=== PATIENT | female | born 1995 | race Caucasian/White ===

== ENCOUNTER 2018-09-15 13:12 | Emergency (ER) | payer OTHER ==
[2018-09-15] MEDS ORDERED: EPINEPHrine 1 MG/ML INJ IM ONE (13:17)
[2018-09-15] MEDS ORDERED: FAMOTIDINE 20 MG TAB PO ONE (13:17)
[2018-09-15] MEDS ORDERED: methylPREDNISolone SOD SUCC 125 MG/2 ML VIAL IVP ONE (13:17)
--- NOTE | 2018-09-15 13:20 | EDPHY ---
H & P Time Seen by Provider: 09/15/18 13:17 HPI/ROS: CHIEF COMPLAINT: Allergic reaction HISTORY OF PRESENT ILLNESS: The patient is brought to the emergency department by paramedics after she sustained an acute allergic reaction presumably from peanuts. She has a history of a prior not allergy. The patient did received Benadryl prior to arrival. She was not administered epinephrine. The patient complains of a diffuse urticarial rash, nausea and dyspnea. The patient denies significant past medical history. She denies any new medications. The patient denies fever, cough or congestion. She currently complains of moderate symptoms. REVIEW OF SYSTEMS: A comprehensive 10 point review of systems is otherwise negative aside from elements mentioned in the history of present illness. Source: Patient, EMS Exam Limitations: No limitations - Medical/Surgical History PMH: Past medical history: Noncontributory aside from prior peanut allergy - Family History Significant Family History: No pertinent family hx - Social History Smoking Status: Never smoked - Physical Exam Exam: General Appearance: Alert, appears uncomfortable Eyes: Pupils equal and round no pallor or injection ENT, Mouth: Mucous membranes moist Respiratory: There are no retractions, lungs are clear to auscultation Cardiovascular: Regular rate and rhythm Gastrointestinal: Abdomen is soft and nontender, no masses, bowel sounds normal Neurological: A&O, normal motor function, normal sensory exam, normal cranial nerves Skin: Diffuse urticarial rash Musculoskeletal: Neck is supple nontender Extremities: symmetrical, full range of motion Psychiatric: Patient is oriented X 3, there is no agitation Constitutional: Initial Vital Signs Temperature (C) 36.6 C 09/15/18 13:20 Heart Rate 105 H 09/15/18 13:20 Respiratory Rate 18 09/15/18 13:20 Blood Pressure 103/48 L 09/15/18 13:20 O2 Sat (%) 98 09/15/18 13:20 O2 Delivery Mode Room Air Allergies/Adverse Reactions: peanut Allergy (Verified 09/15/18 13:19) Home Medications: Medication Instructions Recorded Control 09/15/18 Doxycycline 100 mg Prepack#2 09/15/18 EPINEPHrine [Epipen 0.3 MG] 0.3 mg IM ONCE PRN #1 syr 09/15/18 predniSONE [prednisone 20mg (RX)] 3 tab PO DAILY #15 tab 09/15/18 Medical Decision Making ED Course/Re-evaluation: The patient presents the ED with an urticarial peanut reaction. The patient had received Benadryl prior to arrival. She arrives and is hemodynamically stable. No significant wheezing is noted on exam however she does have impressive urticaria. Patient had an IV established. She received 125 mg of Solu-Medrol. The patient received a single 0.3 mg dose of IM epinephrine and 40 mg of oral Pepcid. Patient was placed on a cardiac surgeon. Patient was re-evaluated at 2:30 p.m.. She is feeling much better. Patient will be discharged home with a prescription for prednisone and also given epinephrine pen. She is given customary aftercare instructions and return precautions. Differential Diagnosis: Differential diagnosis considered includes hives, urticaria, anaphylaxis, angioedema - Data Points Medications Given: Discontinued Medications Epinephrine HCl (Epinephrine) 0.3 mg IM EDNOW ONE Stop: 09/15/18 13:18 Last Admin: 09/15/18 13:25 Dose: 0.3 mg Famotidine (Pepcid) 40 mg PO EDNOW ONE Stop: 09/15/18 13:18 Last Admin: 09/15/18 13:25 Dose: 40 mg Methylprednisolone Sodium Succinate (Solu-Medrol) 125 mg IVP EDNOW ONE Stop: 09/15/18 13:18 Last Admin: 09/15/18 13:25 Dose: 125 mg Departure - Departure Disposition: Home, Routine, Self-Care Clinical Impression: Allergic reaction Condition: Good Instructions: Urticaria (ED) Additional Instructions: 1. Take prednisone as directed for next 5 days. 2. Please continue Benadryl 50 mg every 6 hr as needed for rash and itching. 3. Please take Pepcid 20 mg a day. 4. You have been given a prescription for an epinephrine pen in the event of a severe recurrent reaction. 5. Please follow-up with your primary care provider as scheduled.
[2018-09-15 14:39] VITALS: BP 113/68
== END 2018-09-15 14:39 | disposition home or self-care (01) ==
DX: T78.1XXA Other adverse food reactions, not elsewhere classified, initial encounter (principal)
CPT/HCPCS: 96374; J0171; J2930